=== PATIENT | male | born 1955 | race Caucasian/White ===

== ENCOUNTER → 2020-01-22 | Outpatient (CLI) | payer MEDICARE ==
[~2020-01-22] MED LIST: AMLO10TA8 PO; BUSP10TA PO; DOCU-153 PO; LISI1TAB19 PO; LOVA20TA2 PO; METH750T2 PO; OXYC1TAB15 PO; TAMS0.4C97 PO
--- NOTE | 2020-01-22 16:23 | EKG ---
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
[2020-01-22 16:27] LABS: BASO # 0.1 x10^3/uL (0.0-0.2); BASO % 1 % (0-3); EOS # 0.3 x10^3/uL (0.0-0.7); EOS % 4 % (0-3); HEMATOCRIT 39.3 % (39.0-53.0); LYMPH # 2.1 x10^3/uL (1.0-4.8); LYMPH % 24 % (24-48); MEAN CORPUSCULAR HEMOGLOBIN 33 pg (25-35); MEAN CORPUSCULAR HGB CONC 36 g/dL (31-37); MEAN CORPUSCULAR VOLUME 92 fL (79-100); MONO # 0.8 x10^3/uL (0.0-1.1); MONO % 9 % (0-9); NEUT # 5.6 x10^3/uL (1.8-7.7); NEUT % 63 % (31-73); PLATELET COUNT 310 x10^3/uL (140-400); RED BLOOD COUNT 4.26 x10^6/uL (4.30-5.70); RED CELL DISTRIBUTION WIDTH 13.9 % (11.5-14.5); WHITE BLOOD COUNT 8.9 x10^3/uL (4.0-11.0)
[2020-01-22 16:42] LABS: ALBUMIN 3.7 g/dL (3.4-5.0); ALBUMIN/GLOBULIN RATIO 1.4 (1.0-1.7); CALCIUM 8.3 mg/dL (8.5-10.1); CREATININE 0.9 mg/dL (0.7-1.3); GFR 84.7; POTASSIUM 3.9 mmol/L (3.5-5.1); TOTAL BILIRUBIN 0.3 mg/dL (0.2-1.0); TOTAL PROTEIN 6.3 g/dL (6.4-8.2)
[2020-01-22 16:43] LABS: PROTHROMBIN TIME PATIENT 12.8 SEC (11.7-14.0)
== END ==
LOC: SURGPAT 15:25
PROVIDERS: ATTEND Neurological Surgery
DX: Z01.818 Encounter for other preprocedural examination (principal); Z11.59 Encounter for screening for other viral diseases; M47.12 Other spondylosis with myelopathy, cervical region; M48.02 Spinal stenosis, cervical region; I44.4 Left anterior fascicular block; R94.31 Abnormal electrocardiogram [ECG] [EKG]
CPT/HCPCS: 36415; 80053; 85025; 85610; 85730; 87641; 93005; U0003

== ENCOUNTER 2020-01-26 07:05 | Inpatient (IN) | payer MEDICARE ==
--- NOTE | 2020-01-22 17:43 | PREOP HP ---
DATE OF SERVICE: 01/26/2020 PREOPERATIVE HISTORY AND PHYSICAL DATE OF SURGERY: 01/26/2020 HISTORY OF PRESENT ILLNESS: The patient is a pleasant 64-year-old, who is having difficulty with neck pain and left greater than right arm weakness and numbness. He also notices numbness in his left leg. He says he is unsteady with walking and has fallen several times recently. He has had problems since August of this year. He rates his pain as 4-5/10 usually. Tilting his head in either direction increases his pain. He is taking ibuprofen. He is using a cane. PAST MEDICAL HISTORY: Drug addiction, head and neck injury, hypertension, psychiatric care, trauma, and diabetes. PAST SURGICAL HISTORY: Denies any past surgical history. FAMILY HISTORY: Alzheimer's, heart problems or disease. SOCIAL HISTORY: Works in the home; ; exercises daily; history of alcoholism; denies tobacco use; denies drug use; drinks coffee and soda daily. ALLERGIES: No known drug allergies. CURRENT MEDICATIONS: Tamsulosin, multivitamin, B complex, aspirin, ibuprofen, vitamin C, lovastatin, amlodipine, buspirone, lisinopril, and hydrochlorothiazide. REVIEW OF SYSTEMS: A 12-point review of systems was obtained and is noncontributory except for that mentioned above. PHYSICAL EXAMINATION: GENERAL APPEARANCE: On neurosurgery examination, alert, pleasant, in no acute distress. HEENT: Head is normocephalic and atraumatic. SKIN: Warm and dry. NECK AND THYROID: Duni-kx-rvvxsuig tenderness with palpation on posterior cervical region. MUSCULOSKELETAL: Cervical paraspinal muscle bulk is normal. Cervical range of motion is restricted. Normal range of motion of the upper extremities bilaterally. EXTREMITIES: No clubbing, cyanosis, or edema. NEUROLOGIC: Alert and oriented x3; normal recent and remote memory; strength 5/5 except 4/5 strength in the triceps and hand with 5/5 strength in the lower extremities. Sensory is intact to light touch in the upper and lower extremities except for left distal forearm and hand in which there was a marked decrease with light touch. Sensation was normal in the lower extremities. Reflexes are present and symmetric in the upper extremities, 2+ on the right lower extremity, and 3+ knee and ankle jerks with the left toe upgoing; unsteady spastic gait; using a cane for assistance. IMAGING: I reviewed a cervical MRI scan from 12/11/2019. On that study, there is severe cervical spinal stenosis present at C3-C4, C4-C5, C5-C6, and to a lesser extent C6-C7. ASSESSMENT/ PLAN: At this point, I feel he would best be treated with cervical laminectomy extending from C3 through upper C7. I would combine this to lateral mass fusions bilaterally. I did speak with him regarding the surgical risks and expected postoperative course. He understands. He would like to go ahead. We will make the arrangements. STONEY BOYER MD DR: RUBI/garfield JOB#: [id number] / [id number] JOURDAN
[2020-01-26] VITALS (11 sets, daily range): BP systolic 122–146; BP diastolic 51–77
[~2020-01-26] VITALS: Ht 167.6 cm; Wt 98.4 kg
[~2020-01-26 07:05] MED LIST changes: +BACITRACIN 50,000 UNIT in IV NORMAL SALINE 1000ML BAG 1,000 ML IRR ONE; -DOCU-153 PO; +HYDROmorphone 2 MG/ML VIAL IV PRN; +IV RINGERS,LACTATED 1000ML 1,000 ML IV SCH; +LIDOCAINE 1% PF 2 ML VIAL. ID PRN; -LISI1TAB19 PO; +LISI1TAB37 PO; -METH750T2 PO; +MORPHINE SULFATE 2 MG/ML VIAL. IV PRN; +ONDANSETRON PF 4 MG/2 ML VIAL. IV PRN; -OXYC1TAB15 PO; +PROCHLORPERAZINE 10 MG/2 ML VIAL. IV PRN; +fentaNYL PF VIAL 100 MCG/2 ML VIAL IV PRN
[2020-01-26] MEDS ORDERED: GELATIN SPONGE SIZE 100. ONE (07:13)
[2020-01-26] MEDS ORDERED: BUPIVACAINE-EPI 0.5%-1:200000 MPF 30 ML VIAL. ONE (07:14)
[2020-01-26] MEDS ORDERED: KETOROLAC 60 MG/2 ML VIAL. ONE (07:14)
[2020-01-26] MEDS ORDERED: THROMBIN TOPICAL 20,000 UNIT SPRAY.SYRN KIT TP ONE (07:14)
[2020-01-26] MEDS ORDERED: REMIFENTANIL 2 MG VIAL. IV ONE ×2 (08:21→12:01)
[2020-01-26] MEDS ORDERED: ROCURONIUM 50 MG/5 ML VIAL. ONE (08:21)
[2020-01-26] MEDS ORDERED: GLYCOPYRROLATE 1 MG/5 ML VIAL. ONE (08:21)
[2020-01-26] MEDS ORDERED: PROPOFOL 10 MG/ML (20ML) VIAL. IV ONE (08:26)
[2020-01-26] MEDS ORDERED: DEXAMETHASONE SOD PHOS 20 MG/5 ML VIAL. ONE (08:26)
[2020-01-26] MEDS ORDERED: PHENYLEPHRINE 10 MG/ML VIAL. ONE ×2 (08:26→09:55)
[2020-01-26] MEDS ORDERED: PROPOFOL 50 ML IV ONE ×3 (08:26→12:06)
[2020-01-26] MEDS ORDERED: DESFLURANE > 120 MINUTES IH ONE (09:19)
[2020-01-26] MEDS ORDERED: ONDANSETRON PF 4 MG/2 ML VIAL. ONE (09:56)
[2020-01-26] MEDS ORDERED: KETOROLAC 30 MG/ML VIAL. ONE (09:56)
[2020-01-26] MEDS ORDERED: fentaNYL PF VIAL 100 MCG/2 ML VIAL IVP PRN (10:30)
[2020-01-26] MEDS ORDERED: ACETAMINOPHEN 325 MG TABLET. PO PRN (10:30)
[2020-01-26] MEDS ORDERED: 0.9 % SODIUM CHLORIDE 10 ML DISP.SYRIN. IV PRN (10:30)
[2020-01-26] MEDS ORDERED: diphenhydrAMINE HCL 25 MG CAPSULE PO PRN (10:30)
[2020-01-26] MEDS ORDERED: MAG HYDROX/ALUMINUM HYD/SIMETH 30 ML ORAL.SUSP PO PRN (10:30)
[2020-01-26] MEDS ORDERED: ONDANSETRON PF 4 MG/2 ML VIAL. IVP PRN (10:30)
[2020-01-26] MEDS ORDERED: CALCIUM CARBONATE 500 MG TAB.CHEW PO PRN (10:30)
[2020-01-26] MEDS ORDERED: NALOXONE 0.4 MG/ML VIAL. IV PRN (10:30)
[2020-01-26] MEDS ORDERED: MAGNESIUM HYDROXIDE 2,400 MG/30 ML ORAL.SUSP. PO PRN (10:30)
[2020-01-26] MEDS ORDERED: fentaNYL PF VIAL 100 MCG/2 ML VIAL ONE ×2 (12:37→13:44)
[2020-01-26] MEDS ORDERED: 0.9 % SODIUM CHLORIDE 20 ML VIAL. IJ ONE (12:39)
[2020-01-26] MEDS ORDERED: NEOSTIGMINE 10 MG/10 ML VIAL. ONE (12:42)
--- NOTE | 2020-01-26 13:28 | OP ---
DATE OF SURGERY: 01/26/2020 PREOPERATIVE DIAGNOSES: Severe cervical spinal stenosis at C3-C4, C4-C5, C5-C6; moderate stenosis at C6-C7. POSTOPERATIVE DIAGNOSES: Severe cervical spinal stenosis at C3-C4, C4-C5, C5-C6; moderate stenosis at C6-C7. OPERATION PERFORMED: Cervical laminectomy C3, C4, C5, C6, C7; lateral mass instrumentation C3, C4, C5, C6, C7; facet fusion C3-C4, C4-C5, C5-C6, and C6-C7 with instrumentation C3 through C7. The operation was done with multimodality monitoring including EMG, SSEP, motor evoked potentials. We also used fluoroscopy, microscopic dissection. SURGEON: Reji Boyer M.D. SCRAPER OPERATOR: CLAUDE Lopez assisted with the surgery. She assisted with the exposure, the decompression, the instrumentation as well as closure. OPERATIVE INDICATIONS: The patient is a pleasant 64-year-old who has noted progressive weakness and loss of function of the upper extremities along with unsteadiness. He had the above-mentioned findings on imaging studies and I recommended cervical laminectomy and fusion. I spoke with him about the anterior and posterior compression of the spinal cord and we discussed what I felt was the safest approach to deal with the problem. He understood the surgery and the risks. He wished to go ahead. DESCRIPTION OF PROCEDURE: Following general endotracheal anesthesia, the patient was positioned prone in the Lyons pins. His posterior cervical region was prepped and draped in the standard fashion. We avoided any pressure points. The monitoring was established. Fluoroscopy was brought into the field. The microscope was draped and prepared, and then a midline incision was made using fluoroscopic guidance extending from C2 through C7. I dissected down through skin and subcutaneous tissue, reflected the paraspinal muscles and placed self-retaining retractors. I then placed small tugboat pilot holes in the lateral masses of C3, C4, C5, C6 and laterally at C7. I then tapped with a 2.5 mm drill, followed by screw placement. I used 10 mm screws using the [place] spine system. Rods were placed, nuts were applied, the system was torqued. I did excoriate the facets. I then brought in the microscope and using the high speed air drill, I burred down a trough on each side extending from C3 through C6. I then crossed to the midline at C2-C3 and C6-C7 and then lifting this inferior spinous process, I trimmed away the ligamentous attachments and then began to lift and remove ligaments from inferior to superior. Then, I was able to lift the entire bone free. I then thinned the bone, the upper half of C6-C7, and I used a Kerrison to trim the lamina away at this level. I did assure myself of excellent hemostasis. I did use bone wax frequently as well as lying Gelfoam on the lateral edges of the exposure after the bone had been removed. The spinous process was then trimmed. Pieces of bone were then inserted and tapped into position over the facets of C3-C4, C4-C5, C5-C6, and C6-C7. Fluoroscopic images looked good. I irrigated copiously. I diligently obtained excellent hemostasis and I closed the wound in layers with absorbable suture. The skin was closed with skin chai. I felt the surgery went very well. REJI BOYER MD DR: RUBI/garfield JOB#: [id number] / [id number] JOURDAN
[2020-01-26] MEDS: fentaNYL PF VIAL 100 MCG/2 ML VIAL IV PRN ×2 (13:47→14:00)
[2020-01-26] MEDS: busPIRone 10 MG TABLET. PO SCH ×2 (14:00→20:14)
--- NOTE | 2020-01-26 15:00 | NUR ---
Arrived to unit by bed from PACU. Alert and oriented x's 4. c/o swollen tongue on right edge. Noted some swelling and purple bruise. Able to swallow without difficulty. Posterior neck dressing is d/i with ice pack. Able to wiggle toes easily with great pedal pulses bilaterally. Hands are still numb with good radial pulses+ and warm touch. IVF's intact and infusing. LUIGI's and RAISSA's intact bilaterally. Oriented to room and controls. Side rails up x's 2 with call light in reach. , [place], at bedside. Cont. monitor.
[2020-01-26] MEDS: ceFAZolin SODIUM IV Push 1 GM VIAL. IVP SCH (17:22)
[2020-01-26] MEDS: oxyCODONE/APAP 5/325 1 TAB TABLET PO PRN ×2 (17:31→23:17)
[2020-01-26] MEDS: DOCUSATE SODIUM 100 MG CAPSULE. PO SCH (20:14)
[2020-01-26] MEDS: POTASSIUM CL 20MEQ D5-0.45NACL 1,000 ML IV SCH (22:01)
[2020-01-27] MEDS: ceFAZolin SODIUM IV Push 1 GM VIAL. IVP SCH ×2 (01:18→09:03)
[2020-01-27 03:00] VITALS: BP 123/51
[2020-01-27] MEDS: POTASSIUM CL 20MEQ D5-0.45NACL 1,000 ML IV SCH (04:20)
[2020-01-27] MEDS: oxyCODONE/APAP 5/325 1 TAB TABLET PO PRN ×4 (04:39→20:14)
[2020-01-27 07:00] VITALS: BP 113/58
[2020-01-27] MEDS: hydroCHLOROthiazide 12.5 MG CAPSULE PO SCH (09:03)
[2020-01-27] MEDS: LISINOPRIL 20 MG TABLET PO SCH (09:04)
[2020-01-27] MEDS: busPIRone 10 MG TABLET. PO SCH ×3 (09:05→20:13)
[2020-01-27] MEDS: DOCUSATE SODIUM 100 MG CAPSULE. PO SCH ×2 (09:05→20:13)
[2020-01-27] MEDS: TAMSULOSIN 0.4 MG CAP.ER.24H. PO SCH (09:05)
[2020-01-27] MEDS: amLODIPine BESYLATE 10 MG TABLET PO SCH (09:05)
[2020-01-27] MEDS: ATORVASTATIN CALCIUM 10 MG TABLET. PO SCH (09:05)
[2020-01-27] MEDS: METHOCARBAMOL 750 MG TABLET PO PRN ×2 (09:09→14:09)
--- NOTE | 2020-01-27 10:29 | PDOC ---
PROGRESS NOTES Subjective Subjective POD #1 S/P Cervical laminectomy and fusion C3-7 reports improvement in the left leg numbness. Continues to notice numbness in the left upper extremity neck/ incisional pain helped with medication has ambulated to bathroom PT is here to work with him Objective Objective Vital Signs Date Time Temp Pulse Resp B/P (MAP) Pulse Ox O2 Delivery O2 Flow Rate FiO2 01/27/20 10:14 Room Air 01/27/20 09:05 81 113/58 01/27/20 07:00 98.0 18 99 98.0 01/26/20 14:00 10.0 Intake and Output 01/27/20 06:59 Intake Total 3400 ml Output Total 1500 ml Balance 1900 ml Intake Oral 1400 ml IV Total 2000 ml Output Urine Total 1450 ml Estimated Blood Loss 50 ml # Voids 1 Physical Exam General: Alert, Oriented X3, Cooperative MUSCULOSKELETAL: Other (QUESADA) Neuro: Normal speech Skin: Other (dressing dry and intact) Plan Plan of Care encouraged to increase activity as tolerated physical therapy We will transfer over to spine unit Comment Review of Relevant I have reviewed the following items eduardo (where applicable) has been applied. Medications Current Medications Ondansetron HCl (Zofran) 4 mg PRN Q6HRS PRN IV NAUSEA/VOMITING; Start 01/26/20 at 07:00; Stop 01/26/20 at 17:00; Status DC Fentanyl Citrate (Fentanyl 2ml Vial) 25 mcg PRN Q5MIN PRN IV MILD PAIN 1-3; Start 01/26/20 at 07:00; Stop 01/26/20 at 17:00; Status DC Fentanyl Citrate (Fentanyl 2ml Vial) 50 mcg PRN Q5MIN PRN IV MODERATE TO SEVERE PAIN Last administered on 01/26/20at 14:00; Start 01/26/20 at 07:00; Stop 01/26/20 at 17:00; Status DC Morphine Sulfate (Morphine Sulfate) 1 mg PRN Q10MIN PRN IV SEVERE PAIN 7-10; Start 01/26/20 at 07:00; Stop 01/26/20 at 17:00; Status DC Ringer's Solution 1,000 ml @ 30 mls/hr Q24H IV Last administered on 01/26/20at 08:11; Start 01/26/20 at 07:00; Stop 01/26/20 at 18:59; Status DC Lidocaine HCl (Xylocaine-Mpf 1% 2ml Vial) 2 ml PRN 1X PRN ID PRIOR TO IV START; Start 01/26/20 at 07:00; Stop 01/26/20 at 17:00; Status DC Hydromorphone HCl (Dilaudid) 0.5 mg PRN Q10MIN PRN IV SEV PAIN, Second choice; Start 01/26/20 at 07:00; Stop 01/26/20 at 17:00; Status DC Prochlorperazine Edisylate (Compazine) 5 mg PACU PRN PRN IV NAUSEA, MRX1; St art 01/26/20 at 07:00; Stop 01/26/20 at 17:00; Status DC Cefazolin Sodium/ Dextrose 50 ml @ 100 mls/hr 1X PREOP PRN IV PRIOR TO PROCEDURE; Start 01/26/20 at 06:00; Stop 01/26/20 at 16:05; Status DC Bacitracin 48339 unit/Sodium Chloride 1,000 ml @ 1,000 mls/hr 1X ONCE IRR Last administered on 01/26/20at 09:42; Start 01/26/20 at 06:00; Stop 01/26/20 at 06:59; Status DC Gelatin (Gelfoam Size 100) 1 each STK-MED ONCE .ROUTE Last administered on 01/26/20at 09:42; Start 01/26/20 at 07:13; Stop 01/26/20 at 07:14; Status DC Bupivacaine HCl/ Epinephrine Bitart (Sensorcain-Epi 0.5%-1:[id number] Mpf) 30 ml STK-MED ONCE .ROUTE Last administered on 01/26/20at 09:42; Start 01/26/20 at 07:14; Stop 01/26/20 at 07:14; Status DC Ketorolac Tromethamine (Toradol Im) 60 mg STK-MED ONCE .ROUTE Last administered on 01/26/20at 09:42; Start 01/26/20 at 07:14; Stop 01/26/20 at 07:14; Status DC Thrombin 20,000 unit STK-MED ONCE TP Last administered on 01/26/20at 09:42; Start 01/26/20 at 07:14; Stop 01/26/20 at 07:14; Status DC Glycopyrrolate (Robinul) 1 mg STK-MED ONCE .ROUTE ; Start 01/26/20 at 08:21; Stop 01/26/20 at 08:21; Status DC Rocuronium Elco (Zemuron) 50 mg STK-MED ONCE .ROUTE ; Start 01/26/20 at 08:21; Stop 01/26/20 at 08:21; Status DC Remifentanil HCl (Ultiva) 2 mg STK-MED ONCE IV ; Start 01/26/20 at 08:21; Stop 01/26/20 at 08:21; Status DC Propofol (Diprivan) 200 mg STK-MED ONCE IV ; Start 01/26/20 at 08:26; Stop 01/26/20 at 08:27; Status DC Propofol 50 ml @ As Directed STK-MED ONCE IV ; Start 01/26/20 at 08:26; Stop 01/26/20 at 08:27; Status DC Dexamethasone Sodium Phosphate (Decadron) 20 mg STK-MED ONCE .ROUTE ; Start 01/26/20 at 08:26; Stop 01/26/20 at 08:27; Status DC Phenylephrine HCl (Tobi-Synephrine Inj) 10 mg STK-MED ONCE .ROUTE ; Start 01/26/20 at 08:26; Stop 01/26/20 at 08:27; Status DC Amlodipine Besylate (Norvasc) 10 mg DAILY PO Last administered on 01/27/20at 09:05; Start 01/27/20 at 09:00 Buspirone HCl (Buspar) 10 mg TID PO Last administered on 01/27/20at 09:05; Start 01/26/20 at 14:00 Tamsulosin HCl (Flomax) 0.4 mg DAILY PO Last administered on 01/27/20at 09:05; Start 01/27/20 at 09:00 Lisinopril (Prinivil) 20 mg DAILY PO Last administered on 01/27/20at 09:04; Start 01/27/20 at 09:00 Atorvastatin Calcium (Lipitor) 5 mg DAILY PO Last administered on 01/27/20at 09:05; Start 01/27/20 at 09:00 Fentanyl Citrate (Fentanyl 2ml Vial) 50 mcg PRN Q2HR PRN IVP PAIN; Start 01/26/20 at 10:30 Acetaminophen (Tylenol) 650 mg PRN Q6HRS PRN PO TEMP > 100.3'F; Start 01/26/20 at 10:30 Al Hydroxide/Mg Hydroxide (Mylanta Plus Xs) 30 ml PRN Q3HRS PRN PO HEARTBURN / GAS; Start 01/26/20 at 10:30 Calcium Carbonate/ Glycine (Tums) 500 mg PRN Q3HRS PRN PO INDIGESTION; Start 01/26/20 at 10:30 Diphenhydramine HCl (Benadryl) 25 mg PRN Q6HRS PRN PO ITCHING; Start 01/26/20 at 10:30 Naloxone HCl (Narcan) 0.1 mg PRN Q2MIN PRN IV ADMIN; Start 01/26/20 at 10:30 Sodium Chloride (Normal Saline Flush) 3 ml QSHIFT PRN IV AFTER MEDS AND BLOOD DRAWS; Start 01/26/20 at 10:30 Potassium Chloride/Dextrose/ Sod Cl 1,000 ml @ 75 mls/hr [id number] IV ; Start 01/26/20 at 15:00; Stop 01/27/20 at 04:35; Status DC Oxycodone/ Acetaminophen (Percocet 5/325) 1 tab PRN Q4HRS PRN PO MILD PAIN, 1ST CHOICE; Start 01/26/20 at 10:30 Oxycodone/ Acetaminophen (Percocet 5/325) 2 tab PRN Q4HRS PRN PO MODERATE PAIN, SEVERE PAIN Last administered on 01/27/20at 10:14; Start 01/26/20 at 10:30 Methocarbamol (Robaxin) 750 mg PRN TID PRN PO MUSCLE SPASMS Last administered on 01/27/20at 09:09; Start 01/26/20 at 10:30 Docusate Sodium (Colace) 100 mg BID PO Last administered on 01/27/20at 09:05; Start 01/26/20 at 21:00 Magnesium Hydroxide (Milk Of Magnesia) 2,400 mg PRN Q12HR PRN PO CONSTIPATION; Start 01/26/20 at 10:30 Ondansetron HCl (Zofran) 4 mg PRN Q6HRS PRN IVP NAUESA, 1ST CHOICE; Start 01/26/20 at 10:30 Cefazolin Sodium (Ancef) 1 gm Q8H IVP Last administered on 01/27/20at 09:03; Start 01/26/20 at 17:00; Stop 01/27/20 at 09:01; Status DC Desflurane (Suprane) 90 ml STK-MED ONCE IH ; Start 01/26/20 at 09:19; Stop 01/26/20 at 10:42; Status DC Phenylephrine HCl (Tobi-Synephrine Inj) 10 mg STK-MED ONCE .ROUTE ; Start 01/26/20 at 09:55; Stop 01/26/20 at 10:50; Status DC Ketorolac Tromethamine (Toradol 30mg Vial) 30 mg STK-MED ONCE .ROUTE ; Start 01/26/20 at 09:56; Stop 01/26/20 at 10:54; Status DC Propofol 50 ml @ As Directed STK-MED ONCE IV ; Start 01/26/20 at 10:26; Stop 01/26/20 at 10:55; Status DC Ondansetron HCl (Zofran) 4 mg STK-MED ONCE .ROUTE ; Start 01/26/20 at 09:56; Stop 01/26/20 at 11:19; Status DC Hydrochlorothiazide (Microzide) 12.5 mg DAILY PO Last administered on 01/27/20at 09:03; Start 01/27/20 at 09:00 Remifentanil HCl (Ultiva) 2 mg STK-MED ONCE IV ; Start 01/26/20 at 12:01; Stop 01/26/20 at 12:03; Status DC Propofol 50 ml @ As Directed STK-MED ONCE IV ; Start 01/26/20 at 12:06; Stop 01/26/20 at 12:08; Status DC Fentanyl Citrate (Fentanyl 2ml Vial) 100 mcg STK-MED ONCE .ROUTE ; Start 01/26/20 at 12:37; Stop 01/26/20 at 12:38; Status DC Sodium Chloride (SODIUM CHLORIDE 20ml) 20 ml STK-MED ONCE IJ ; Start 01/26/20 at 12:39; Stop 01/26/20 at 12:39; Status DC Neostigmine Methylsulfate (Bloxiverz) 10 mg STK-MED ONCE .ROUTE ; Start 01/26/20 at 12:42; Stop 01/26/20 at 12:42; Status DC Fentanyl Citrate (Fentanyl 2ml Vial) 100 mcg STK-MED ONCE .ROUTE ; Start 01/26/20 at 13:44; Stop 01/26/20 at 13:45; Status DC Active Scripts Active Reported Flomax (Tamsulosin Hcl) 0.4 Mg Cap.er.24h 1 Cap PO DAILY Lisinopril-Hctz 20-12.5 Mg Tab (Lisinopril/Hydrochlorothiazide) 1 Each Tablet 1 Tab PO DAILY Buspirone Hcl 10 Mg Tablet 10 Mg PO TID Amlodipine Besylate 10 Mg Tablet 10 Mg PO DAILY Lovastatin 20 Mg Tablet 1 Tab PO DAILY Vitals/I & O Vital Sign - Last 24 Hours 01/26/20 01/26/20 01/26/20 01/26/20 13:26 13:26 13:40 13:47 Temp 100.4 100.4 100.4 100.4 Pulse 96 96 Resp 16 15 17 B/P (MAP) 157/76 153/68 Pulse Ox 99 99 97 O2 Delivery Mask Simple Mask Simple Mask Simple Mask O2 Flow Rate 10 10 10 10.0 01/26/20 01/26/20 01/26/20 01/26/20 13:55 14:00 14:10 14:25 Temp 100.4 97.8 97.8 100.4 97.8 97.8 Pulse 92 73 72 Resp 16 16 16 15 B/P (MAP) 161/79 141/72 121/57 Pulse Ox 99 99 96 94 O2 Delivery Simple Mask Simple Mask Room Air Room Air O2 Flow Rate 10. 10.0 01/26/20 01/26/20 01/26/20 01/26/20 14:40 15:00 15:12 15:15 Temp 97.8 98.2 97.8 98.2 Pulse 96 98 96 Resp 17 18 B/P (MAP) 141/63 134/67 (89) 144/75 (98) Pulse Ox 95 95 O2 Delivery Room Air Room Air 01/26/20 01/26/20 01/26/20 01/26/20 15:30 15:45 16:00 16:30 Pulse 97 94 94 93 B/P (MAP) 146/68 (94) 137/74 (95) 141/68 (92) 136/66 (89) 01/26/20 01/26/20 01/26/20 01/26/20 17:31 18:30 19:00 19:45 Temp 98.5 98.5 Pulse 104 Resp 18 B/P (MAP) 137/77 (97) Pulse Ox 93 O2 Delivery Room Air Room Air Room Air Room Air 01/26/20 01/26/20 01/26/20 01/26/20 20:00 21:00 22:00 23:00 Temp 99.2 99.2 Pulse 99 96 97 89 Resp 18 B/P (MAP) 139/59 (85) 129/52 (77) 126/51 (76) 122/52 (75) Pulse Ox 93 93 94 92 O2 Delivery Room Air Room Air Room Air Room Air 01/26/20 01/27/20 01/27/20 01/27/20 23:17 00:17 03:00 04:39 Temp 98.6 98.6 Pulse 72 Resp 20 18 18 B/P (MAP) 123/51 (75) Pulse Ox 93 95 O2 Delivery Room Air Room Air Room Air Room Air 01/27/20 01/27/20 01/27/20 01/27/20 05:39 07:00 09:04 09:05 Temp 98.0 98.0 Pulse 81 81 81 Resp 18 B/P (MAP) 113/58 (76) 113/58 113/58 Pulse Ox 99 O2 Delivery Room Air Room Air 01/27/20 10:14 O2 Delivery Room Air Intake and Output 01/26/20 01/26/20 01/27/20 14:59 22:59 06:59 Intake Total 1000 ml 2400 ml Output Total 50 ml 850 ml 600 ml Balance 950 ml -850 ml 1800 ml Justicifation of Admission Dx: Justifications for Admission: Justification of Admission Dx: Yes Comments: s/p multilevel cervical laminectomy Pain management, Physical therapy needed STONEY BOYER MD Jan 27, 2020 10:29
[2020-01-27 11:00] VITALS: BP 119/64
--- NOTE | 2020-01-27 11:01 | NUR ---
Transferred to 452 at approximately 1055. Report given to Kandy CARMEN.
[2020-01-27 15:26] VITALS: BP 109/65
--- NOTE | 2020-01-27 18:06 | PATHOLOGY ---
[facility] Accession Number: [id number] . 01 Material submitted: . vertebral column - CERVICAL DECOMPRESSION . 01 Clinical history: . Cervical stenosis, myelopathy spondylosis . 02 Diagnosis: Segments of fibrocartilaginous, adipose, and skeletal muscle tissue and bone, cervical decompression: - Degenerative changes of fibrocartilaginous tissue. (JPM:hira; 01/27/2020) QMS 01/27/2020 1405 Local . 02 Comment: There is no evidence of an acute inflammatory process or malignancy. (JPM:hira; 01/27/2020) . 02 Electronically signed: . Stan Bennett MD, Pathologist NPI- [id number] . 01 Gross description: . The specimen is received in formalin, labeled "Leeannniecyu, Randol, cervical decompression" and consists of multiple fragments of corey-brown, soft and gritty tissue with admixed bone measuring 6.6 x 3.6 x 2.2 cm in aggregate. Hospice Entrance Attendant sections are submitted in A1 following decalcification. ([facility]; 01/26/2020) JFQ/JFQ 01/27/2020 1403 Local . 02 Pathologist provided ICD-10: M99.71, M47.10 . 02 CPT . 480594, 688420 Specimen Comment: A courtesy copy of this report has been sent to [phone], [phone] Specimen Comment: [id number] Specimen Comment: Report sent to / DR ENGLAND Performed at: 01 [facility] [address], [place], [place] [id number] MD Erickson Ford MD Phone: [phone] Performed at: 02 [facility] [address], [place] [id number] MD Stan Bennett MD Phone: [phone]
[2020-01-27 18:34] VITALS: BP 124/70
[2020-01-27 23:18] VITALS: BP 133/73
[2020-01-28] MEDS: METHOCARBAMOL 750 MG TABLET PO PRN ×2 (00:06→12:02)
[2020-01-28] MEDS: oxyCODONE/APAP 5/325 1 TAB TABLET PO PRN ×3 (02:52→12:03)
--- NOTE | 2020-01-28 02:52 | NUR ---
Upon entering room to do 0300 vitals. Patient states "I've been awake and hurting." RN informed Patient on need to push call light to let RN know he is in pain. Pain medication given at this time for Patient's c/o pain.
[2020-01-28 02:56] VITALS: BP 134/74
[2020-01-28 06:19] VITALS: BP 154/85
[2020-01-28] MEDS: DOCUSATE SODIUM 100 MG CAPSULE. PO SCH (07:58)
[2020-01-28] MEDS: TAMSULOSIN 0.4 MG CAP.ER.24H. PO SCH (07:58)
[2020-01-28] MEDS: ATORVASTATIN CALCIUM 10 MG TABLET. PO SCH (07:59)
[2020-01-28] MEDS: hydroCHLOROthiazide 12.5 MG CAPSULE PO SCH (08:00)
[2020-01-28] MEDS: LISINOPRIL 20 MG TABLET PO SCH (08:03)
[2020-01-28] MEDS: busPIRone 10 MG TABLET. PO SCH ×2 (08:03→15:19)
[2020-01-28] MEDS: amLODIPine BESYLATE 10 MG TABLET PO SCH (08:04)
[2020-01-28 11:00] VITALS: BP 128/75
[2020-01-28] MEDS ORDERED: OXYC1TAB15 PO (15:18)
[2020-01-28] MEDS ORDERED: DOCU-153 PO (15:18)
[2020-01-28] MEDS ORDERED: METH750T2 PO (15:18)
--- NOTE | 2020-01-28 15:21 | DISCH ---
DISCHARGE INSTRUCTIONS Condition on Discharge Condition on Discharge: Stable Activity After Discharge Activity Instructions for Disc: Activity as tolerated, Avoid exertion Bathing Instructions: Shower-keep dressing dry Lifting Instructions after Dis: No heavy lifting, No pulling or pushing, Do not lift >10 pounds Diet after Discharge Additional Diet Restrictions: resume home diet Wound Incision Care Wound/Incision Care: Ice to area for comfort Other wound/incision instructi: may remove dressing in 48 hours if dry then may shower, no soaking Contacting the DRJude after DC Call your doctor for: Concerns you may have Follow-Up Follow up with: Dr. Boyer's nurse in 2 weeks [phone] STONEY OBYER MD Jan 28, 2020 15:21
--- NOTE | 2020-01-28 15:26 | SNU/HH DC ---
DISCHARGE WITH HOME HEALTH DISCHARGE INFORMATION: Discharge Date: Jan 28, 2020 Final Diagnosis: cervical stenosis Condition on Discharge: Stable CODE STATUS: Code Status: Full HOME HEALTH: Face to Face: I certify this patient is under my care and that I, or a nurse practitioner or physician's assistant press operator offset working with me, had a face to face encounter that meets the physician face to face encounter requirements with this patient on 01/28/2020 RN For Eval/Treatment: Yes Physical Therapy For: Evalulation/Treatment Pt Meets Homebound Status: Unsteady balance w/ amb, POST DISCHARGE ORDERS: Activity Instructions for Disc: Activity as tolerated, Avoid exertion Weight Bearing Status after Di: No restrictions Bathing Instructions: Shower-keep dressing dry DIET AFTER DISCHARGE: Regular Wound/Incision Care: Ice to area for comfort Other wound/incision instructi: may remove dressing in 48 hours if dry then may shower, no soaking FOLLOW-UP: Follow up with: Dr. Byoer's nurse in 2 weeks [phone] CERTIFICATION STATEMENT: Certification Statement: Certification Statement: Based on the above finding, I certify that this patient is confined to the home and needs intermittent [facility] care, physical therapy and/or speech therapy, or continues to need occupational therapy.~ This patient is under my care, and I have initiated the establishment of the plan of care.~ This patient will be followed by myself or a community physician who will periodically review the plan of care. Home Meds Reported Medications Tamsulosin Hcl (FLOMAX) 0.4 Mg Cap.er.24h, 1 CAP PO DAILY for bph, #30 CAP 11 Refills //20 Lisinopril/Hydrochlorothiazide (LISINOPRIL-HCTZ 20-12.5 MG TAB) 1 Each Tablet, 1 TAB PO DAILY for htn, #30 TAB 5 Refills //20 Buspirone Hcl (BUSPIRONE HCL) 10 Mg Tablet, 10 MG PO TID for anxiety, TAB 7/2/20 Amlodipine Besylate (AMLODIPINE BESYLATE) 10 Mg Tablet, 10 MG PO DAILY for htn, TAB 7/2/20 Lovastatin (LOVASTATIN) 20 Mg Tablet, 1 TAB PO DAILY for high cholesterol, #30 TAB 5 Refills /2/20 STONEY BOYER MD Jan 28, 2020 15:25
--- NOTE | 2020-01-28 16:20 | NUR ---
Discharge instructions given with prescriptions. Also received copy of [facility] home instruction packet. Answered questions and concerns. Verbalized understanding. Extra dressings given. Will be follow by home health [facility]. Pt discharge home accompanied by spouse.
--- NOTE | 2020-01-29 14:15 | DS ---
DATE OF DISCHARGE: 01/28/2020 DISCHARGE DIAGNOSES: Severe cervical spinal stenosis at C3-C4, C4-C5, C5-C6, moderate stenosis at C6-C7. OPERATION PERFORMED: Cervical laminectomy C3, C4, C5, C6, C7 lateral mass instrumentation C3, C4, C5, C6, C7, facet fusion, C3-C4, C4-C5, C5-C6 and C6-C7 with instrumentation C3 through C7. HISTORY OF PRESENT ILLNESS: The patient is a pleasant 64-year-old man who noted progressive weakness and loss of function in the upper extremities along with unsteadiness. He had the above-mentioned findings on imaging studies and I recommended a cervical laminectomy fusion. I spoke with him about the technique and risks and expected postoperative course. He understood and wished to proceed. HOSPITAL COURSE: He was admitted to the floor postoperatively where he has done well. He noted significant improvement in his symptoms of the upper and lower extremities. He has been up ambulating in the room and in the halls. He has been doing well with that. Physical therapy was initiated and instruction was given to him regarding his activities. His pain is well controlled. He is in good condition to discharge home with home health services. DISCHARGE MEDICATIONS: He will resume his medications per the [facility]. DISCHARGE INSTRUCTIONS: He was instructed regarding incision care, activity restrictions and expectations for the next several weeks. He will follow up in our office in 2 weeks. He understands to call with any questions or concerns. STONEY BOYER MD DR: FRANK/garfield JOB#: [id number] / [id number]
== END 2020-01-28 16:20 | disposition home health service (06) | DRG 472 ==
LOC: OPSVCIP 07:05 → EDUNIT# 08:30 → 4 NORTH 15:00 → 4 SOUTHEST 01-27 11:10
PROVIDERS: ADMIT Neurological Surgery; ATTEND Neurological Surgery
PROC: 00NW0ZZ Release Cervical Spinal Cord, Open Approach (ICD-10-PCS; 2020-01-26)
PROC: 4A11X4G Monitoring of Peripheral Nervous Electrical Activity, Intraoperative, External Approach (ICD-10-PCS; 2020-01-26)
PROC: 0RG20J1 Fusion of 2 or more Cervical Vertebral Joints with Synthetic Substitute, Posterior Approach, Posterior Column, Open Approach (ICD-10-PCS; principal; 2020-01-26 08:30)
DX: M48.02 Spinal stenosis, cervical region (principal); M47.12 Other spondylosis with myelopathy, cervical region; E11.9 Type 2 diabetes mellitus without complications; I10 Essential (primary) hypertension; Z82.0 Family history of epilepsy and other diseases of the nervous system; Z79.899 Other long term (current) drug therapy
CPT/HCPCS: 36415; 76000; 86850; 86900; 86901; 88304; 88311; A7015; C1713; J0690; J1100; J1885; J2370; J2405; J2704; J2710; J3010; J3490; J7030; J7120; 97116-GP; 97530-GP; 97535-GO; G0378